=== PATIENT | male | born 1970 ===

== ENCOUNTER 2024-01-31 06:20 | Day surgery (SDC) | payer OTHER ==
[2024-01-22 08:54] LABS: PH,URINE 6.5 (5.0-8.0); URINE APPEARANCE Clear; URINE BILIRRUBIN Negative (NEGATIVE); URINE BLOOD Negative; URINE COLOR Yellow; URINE GLUCOSE Negative (NEGATIVE); URINE LEUKOCYTE Negative; URINE NITRATE Negative; URINE PROTEIN Negative (NEGATIVE)
[2024-01-22 08:55] LABS: URINE BACTERIA 6.3 uL (0.0-1933); URINE EPITHELIAL CELLS 1.5 uL (0.0-38.8); URINE WBC 2.4 uL (0.0-23.2)
[2024-01-22 08:56] LABS: HEMATOCRIT 40.1 % (39.0-48.0); HEMOGLOBIN 13.9 g/dL (13-16.00); MEAN CELL VOLUME 89.2 fL (80.0-100.00); MEAN CORPUSCULAR HGB CONC 34.7 g/dl (32.0-36.0); PLATELET COUNT 242 K/uL (150-450); RED CELL DISTRIBUTION WIDTH 13.3 % (11.5-14.5)
[2024-01-22 09:22] LABS: INR 0.99; PARTIAL THROMBOPLASTIN TIME 29.2 SECONDS (22.0-34.0); PROTHROMBIN TIME 10.4 SECONDS (9.0-11.5)
[2024-01-22 09:49] LABS: CREATININE SERUM 0.91 mg/dL (0.70-1.30); GFR 87.49; POTASSIUM 3.93 mEq/L (3.5-5.1)
[~2024-01-31 06:20] MED LIST: ATORVASTATIN; FENOFIBRATE; METFORMIN
[2024-01-31] MEDS ORDERED: ENOXAPARIN SODIUM 40 MG/0.4 ML SYRINGE SUBCUTANEO ONE ×2 (08:11→10:30)
[2024-01-31] MEDS ORDERED: CEFTRIAXONE SODIUM 2,000 MG VIAL ONE (08:13)
[2024-01-31] MEDS ORDERED: METRONIDAZOLE/SODIUM CHLORIDE 500 MG/100 ML PIGGYBACK IV ONE ×2 (08:19→10:30)
[2024-01-31] MEDS ORDERED: BUPIVACAINE HCL/PF 0.5% 30ML ML ONE (09:41)
[2024-01-31] MEDS ORDERED: BUPIVACAINE HCL 30 ML VIAL IJ ONE (10:30)
[2024-01-31] MEDS ORDERED: CEFTRIAXONE SODIUM 2,000 MG VIAL IV ONE (10:30)
[2024-01-31] MEDS ORDERED: CELEBREX200MG PO (12:05)
[2024-01-31] MEDS ORDERED: COLACE100 MG PO (12:05)
[2024-01-31] MEDS ORDERED: NEURONTIN300 MG PO (12:05)
[2024-01-31] MEDS ORDERED: PERCOCET 5-3251 EACH PO (12:05)
== END 2024-01-31 15:55 | disposition home or self-care (01) ==
LOC: CIR.AMB 06:20
PROVIDERS: ATTEND Surgery
DX: K40.90 Unilateral inguinal hernia, without obstruction or gangrene, not specified as recurrent (principal)
CPT/HCPCS: 49650; C1781